=== PATIENT | female | born 1980 | race Caucasian/White ===

== ENCOUNTER 2017-08-31 14:16 | Emergency (ER) | payer OTHER ==
[2017-08-31 14:25] VITALS: BP 115/96
== END 2017-08-31 17:01 | disposition home or self-care (01) ==
LOC: ED 14:16
DX: J03.90 Acute tonsillitis, unspecified (principal); H92.01 Otalgia, right ear
CPT/HCPCS: J0696; J1100

== ENCOUNTER 2018-03-22 13:48 | Emergency (ER) | payer OTHER ==
[~2018-03-22] VITALS: Ht 154.9 cm; Wt 58.7 kg
[2018-03-22 15:16] VITALS: BP 120/72
== END 2018-03-22 15:16 | disposition home or self-care (01) ==
LOC: ED 13:48
DX: S86.911A Strain of unspecified muscle(s) and tendon(s) at lower leg level, right leg, initial encounter (principal); W18.39XA Other fall on same level, initial encounter; Y93.89 Activity, other specified; Y92.89 Other specified places as the place of occurrence of the external cause; Y99.8 Other external cause status

== ENCOUNTER 2018-06-05 18:30 | Emergency (ER) | payer OTHER ==
[~2018-06-05] VITALS: Ht 165.1 cm; Wt 52.6 kg
[2018-06-05 18:43] VITALS: BP 124/79; Ht 165.1 cm; Wt 52.6 kg
== END 2018-06-05 20:15 | disposition home or self-care (01) ==
LOC: ED 18:30
DX: H92.02 Otalgia, left ear (principal)